=== PATIENT | male | born 1990 | race Caucasian/White ===

== ENCOUNTER 2019-07-10 14:03 | Inpatient (IN) | payer SELFPAY ==
[2019-07-10] MEDS ORDERED: LIDOCAINE 1% MPF 5 ML VIAL ONE (14:12)
[2019-07-10] MEDS ORDERED: BUPIVACAINE 0.5% PF 10 ML VIAL ONE (14:13)
[2019-07-10] MEDS ORDERED: ONDANSETRON 4 MG/2 ML VIAL ONE (14:13)
[2019-07-10] MEDS ORDERED: MORPHINE 4 MG/ML SYR ONE (14:13)
[2019-07-10] MEDS ORDERED: CEFAZOLIN/SWI 1gm 2 GM/20 ML SYR ONE (14:18)
--- NOTE | 2019-07-10 14:49 | RAD REPORT ---
EXAM DESCRIPTION: RAD -Hand Left 3 View - 07/10/2019 2:40 pm CLINICAL HISTORY: Left hand pain status post injury FINDINGS: Soft tissue amputation involves distal third and fourth digit. Comminuted avulsion fractures involve the third and fourth terminal brooke. No dislocation
[2019-07-10 15:13] LABS: Absolute Lymphocytes (CBC) 2.5 K/uL (0.7-4.9); Basophils % 0.6 % (0-1.3); Hematocrit 47.4 % (39.6-49.0); Lymphocytes % 33.2 % (15.3-44.8); MPV 8.2 fL (7.6-11.3); RBC Red Blood Cell Count 5.26 M/uL (4.33-5.43)
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
--- NOTE | 2019-07-10 15:25 | EDPHYS ---
Physician Documentation [facility] Name: Cruz Olivarez Age: 29 yrs Sex: Male : 1990 Arrival Date: 07/10/2019 Time: 14:04 Bed 20 Private MD: ED Physician Gio Ignacio HPI: 07/09 14:49 This 29 yrs old Male presents to ER via EMS with complaints of Finger Injury. [facility] 14:49 Trauma demographics: County: The injury occurred in [place]. Mechanism of injury: terri Crush injury:. Associated injuries: The patient sustained decreased range of motion, painful injury. Onset: The symptoms/episode began/occurred this morning. The patient has not experienced similar symptoms in the past. Historical: - Allergies: 14:07 Amoxicillin; ll1 - PMHx: 14:07 Seizures; ll1 - PSHx: 14:07 None; ll1 - Immunization history:: Last tetanus immunization: < 5 years ago. - Social history:: Smoking status: Patient reports the use of cigarette tobacco products, smokes one pack cigarettes per day. Patient uses alcohol, weekly. Patient/guardian denies using IV drugs. - Family history:: not pertinent. ROS: 14:49 Constitutional: Negative for fever, chills, and weight loss, Eyes: Negative for injury, terri pain, redness, and discharge, ENT: Negative for injury, pain, and discharge, Neck: Negative for injury, pain, and swelling, Cardiovascular: Negative for chest pain, palpitations, and edema, Respiratory: Negative for shortness of breath, cough, wheezing, and pleuritic chest pain, Abdomen/GI: Negative for abdominal pain, nausea, vomiting, diarrhea, and constipation, Back: Negative for injury and pain, : Negative for injury, bleeding, discharge, and swelling, Skin: Negative for injury, rash, and discoloration, Neuro: Negative for headache, weakness, numbness, tingling, and seizure, Psych: Negative for depression, anxiety, suicide ideation, homicidal ideation, and hallucinations, Allergy/Immunology: Negative for hives, rash, and allergies, Endocrine: Negative for neck swelling, polydipsia, polyuria, polyphagia, and marked weight changes. 14:49 MS/extremity: Positive for deformity, pain, swelling, tenderness, of the palmar aspect of distal phalanx of left ring finger, palmar aspect of distal phalanx of left middle finger, left middle fingernail and left ring fingernail. Exam: 14:49 Constitutional: This is a well developed, well nourished patient who is awake, alert, terri and in no acute distress. Head/Face: Normocephalic, atraumatic. Eyes: Pupils equal round and reactive to light, extra-ocular motions intact. Lids and lashes normal. Conjunctiva and sclera are non-icteric and not injected. Cornea within normal limits. Periorbital areas with no swelling, redness, or edema. ENT: Nares patent. No nasal discharge, no septal abnormalities noted. Tympanic membranes are normal and external auditory canals are clear. Oropharynx with no redness, swelling, or masses, exudates, or evidence of obstruction, uvula midline. Mucous membranes moist. Neck: Trachea midline, no thyromegaly or masses palpated, and no cervical lymphadenopathy. Supple, full range of motion without nuchal rigidity, or vertebral point tenderness. No Meningismus. Chest/axilla: Normal chest wall appearance and motion. Nontender with no deformity. No lesions are appreciated. Cardiovascular: Regular rate and rhythm with a normal S1 and S2. No gallops, murmurs, or rubs. Normal PMI, no JVD. No pulse deficits. Respiratory: Lungs have equal breath sounds bilaterally, clear to auscultation and percussion. No rales, rhonchi or wheezes noted. No increased work of breathing, no retractions or nasal flaring. Abdomen/GI: Soft, non-tender, with normal bowel sounds. No distension or tympany. No guarding or rebound. No evidence of tenderness throughout. Back: No spinal tenderness. No costovertebral tenderness. Full range of motion. Male : Normal genitalia with no discharge or lesions. Skin: Warm, dry with normal turgor. Normal color with no rashes, no lesions, and no evidence of cellulitis. Neuro: Awake and alert, GCS 15, oriented to person, place, time, and situation. Cranial nerves II-XII grossly intact. Motor strength 5/5 in all extremities. Sensory grossly intact. Cerebellar exam normal. Normal gait. Psych: Awake, alert, with orientation to person, place and time. Behavior, mood, and affect are within normal limits. 14:49 Musculoskeletal/extremity: Extremities: noted in the palmar aspect of distal phalanx of left ring finger, palmar aspect of distal phalanx of left middle finger, left middle fingernail and left ring fingernail: deformity, pain. Vital Signs: 14:05 BP 138 / 99; Pulse 86; Resp 17; Temp 97.2; Pulse Ox 97% ; Pain 10/10; ll1 16:25 BP 112 / 72; Pulse 82; Resp 17; Pulse Ox 99% ; Pain 7/10; ll1 MDM: 14:20 Patient medically screened. [facility] 15:35 Data reviewed: vital signs, nurses notes, lab test result(s), radiologic studies, plain terri films. 07/09 14:54 Order name: CBC with Diff [facility] 07/09 14:54 Order name: Comprehensive Metabolic Panel [facility] 07/09 14:23 Order name: XRAY Hand LEFT 3 View 07/09 15:18 Order name: Wound dressing; Complete Time: 16:47 [facility] Administered Medications: 14:09 Drug: Zofran (Ondansetron) 4 mg Route: IVP; Site: right antecubital; ll1 14:39 Follow up: Response: No adverse reaction; Pain is decreased; RASS: Alert and Calm (0) ll1 14:10 Drug: morphine 4 mg Route: IVP; Site: right antecubital; ll1 14:38 Follow up: Response: No adverse reaction; Pain is decreased; RASS: Alert and Calm (0) ll1 15:00 Drug: Ancef 2 grams Route: IVPB; Infused Over: 30 mins; Site: right antecubital; ll1 16:23 Follow up: Response: No adverse reaction; IV Status: Completed infusion; IV Intake: [id number] 15:19 Not Given (Up to date 2015): Tetanus-Diphtheria Toxoid Adult 0.5 ml IM once ll1 Disposition: 07/10/19 15:23 Hospitalization ordered by Biju Luciano for Observation. 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 - Bed requested for Telemetry/MedSurg (observation). - Status is Observation. ll1 - Condition is Stable. - Problem is new. - Symptoms have improved. Signatures: Dispatcher [employer] EDMS DirrimDulce Corey, MD MD cha Lewis, Lynsay, RN RN ll1 Corrections: (The following items were deleted from the chart) 15:56 15:23 Hospitalization Ordered by Biju Luciano MD for Observation. 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 Bed requested for Telemetry/MedSurg (observation). Status is Observation. Condition is Stable. Problem is new. Symptoms have improved. [facility] 16:59 15:56 07/10/2019 15:23 Hospitalization Ordered by Biju Luciano MD for Observation. 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 Bed requested for Telemetry/MedSurg (observation). Status is Observation. Condition is Stable. Problem is new. Symptoms have improved. bd
[2019-07-10 15:33] LABS: Albumin 4.6 g/dL (3.4-5.0); Bilirubin Total 0.9 mg/dL (0.2-1.0); Potassium 3.8 mmol/L (3.5-5.1); Protein, Total 7.8 g/dL (6.4-8.2)
[2019-07-10] MEDS ORDERED: ONDANSETRON 4 MG/2 ML VIAL IV PRN (17:17)
[2019-07-10] MEDS ORDERED: ACETAMINOPHEN 325 MG TABLET PO PRN (17:28)
[2019-07-10 17:34] VITALS: BMI 27.1
[2019-07-10] MEDS: NA CHLORIDE 0.9% 1,000 ML IV SCH (18:04)
[2019-07-10] MEDS: MORPHINE 4 MG/ML SYR IV PRN ×2 (18:04→21:42)
[2019-07-10] MEDS: CEFAZOLIN/SWI 1gm 1 GM/10 ML SYR IVP SCH (18:45)
[2019-07-11] MEDS: CEFAZOLIN/SWI 1gm 1 GM/10 ML SYR IVP SCH ×5 (00:33→23:17)
[2019-07-11] MEDS: MORPHINE 4 MG/ML SYR IV PRN ×3 (02:33→19:42)
[2019-07-11] MEDS: NA CHLORIDE 0.9% 1,000 ML IV SCH ×3 (05:48→23:17)
[2019-07-11 06:24] LABS: Absolute Lymphocytes (CBC) 3.6 K/uL (0.7-4.9); Basophils % 0.8 % (0-1.3); Hematocrit 44.7 % (39.6-49.0); Lymphocytes % 47.7 % (15.3-44.8); MPV 8.2 fL (7.6-11.3); RBC Red Blood Cell Count 4.97 M/uL (4.33-5.43)
[2019-07-11 06:26] LABS: BUN Blood Urea Nitrogen 10 mg/dL (7-18); Bicarbonate 25 mmol/L (21-32); Glucose Level 96 mg/dL (74-106); Potassium 3.8 mmol/L (3.5-5.1); Sodium Level 140 mmol/L (136-145)
[2019-07-11 08:16] LABS: Blood Morphology Comment NOT SEEN (NOT SEEN); Platelet Estimate ADEQ
[2019-07-11] MEDS ORDERED: Ringers Lactate 1,000 ML IV ONE (14:31)
[2019-07-11] MEDS: HYDROMORPHONE HCL 1 MG/ML INJ ONE ×2 (14:50→17:15)
[2019-07-11] MEDS ORDERED: MIDAZOLAM HCL 2 MG/2 ML INJ ONE (16:11)
[2019-07-11] MEDS ORDERED: FENTANYL CITR 100 MCG/2 ML ONE (16:11)
[2019-07-11] MEDS ORDERED: LIDOCAINE 1% MPF 5 ML VIAL ONE (16:11)
[2019-07-11] MEDS ORDERED: propofoL 200 MG/20 ML VIAL IV ONE (16:11)
[2019-07-11] MEDS ORDERED: KETOROLAC 30 MG/ML INJ ONE (16:34)
[2019-07-11] MEDS ORDERED: ONDANSETRON 4 MG/2 ML VIAL ONE (16:51)
[2019-07-11] MEDS ORDERED: HYDROMORPHONE HCL 1 MG/ML INJ ONE (17:35)
[2019-07-11] MEDS: CODEINE 30MG/APAP 300MG TAB PO PRN ×2 (18:46→23:15)
[2019-07-12] MEDS: MORPHINE 4 MG/ML SYR IV PRN ×2 (00:26→04:00)
--- NOTE | 2019-07-12 01:59 | OP ---
Surgeon: Biju Luciano MD Preoperative Diagnosis: Tip amputation of the left middle and ring finger. Postoperative Diagnosis: Tip amputation of the left middle and ring finger. Procedure: Debridement of skin and subcutaneous tissue, bone with flap closures of both middle and ring finger. Anesthesia: General. Procedure In Detail: After satisfactory induction of general anesthesia, the hand was prepped with Betadine scrub, Betadine paint, dry sterile drapes applied in the usual manner. The arm was elevated, exsanguinated with an Esmarch. Tourniquet was inflated to 250 mmHg. Hand was placed on [place] table. The nail plate was removed in the middle finger, very small portion. He underwent amputation approximately up to almost to the dermal matrix on the middle finger, more distally on the ring. Skin and subcutaneous tissue were debrided. Bone was cut and filed with a saw, and the wound was jet lavage irrigated with 3 L of dilute Betadine solution. Then the flap was outlined radially and ulnarly, advanced to the midline. Sewn, closed with 4-0 PDS simple sutures. Tourniquet released. Dressed with Xeroform, 2 inch Antonio. The patient tolerated the procedure well and returned to Recovery. LYNDSAY/ROSA MARIA Voice ID: [id number] Report ID: [id number] KIKI
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
--- NOTE | 2019-07-12 03:04 | DS ---
Hospital Course: Patient is 29-year-old white male, right-hand dominant, who cut tips of left middle and ring fingers. HE smokes a pack a day. Drinks daily. He has a tip amputation volar surface on the middle finger was approximately at the germinal matrix and on the ring finger more distally, approximately half of the nail bed has gone. He was taken to Surgery, underwent debridement flap closure. Discharged home on Tylenol #3, 1 tab p.o. q.3 hours p.r.n. pain, Keflex 500 mg p.o. q.6 hours, return to office following Tuesday, 5 days from now, at the [place] office at 9 o'clock in morning. LYNDSAY/ROSA MARIA Voice ID: [id number] Report ID: [id number] MTDD
[2019-07-12] MEDS: CEFAZOLIN/SWI 1gm 1 GM/10 ML SYR IVP SCH (05:32)
[2019-07-12] MEDS: CODEINE 30MG/APAP 300MG TAB PO PRN (07:39)
[2019-07-12 07:43] VITALS: O2SAT 98
[2019-07-12] MEDS: NA CHLORIDE 0.9% 1,000 ML IV SCH (09:17)
[2019-07-12 10:07] VITALS: BP 132/87; TEMP 97.9
== END 2019-07-12 10:15 | disposition home or self-care (01) | DRG 906 ==
LOC: ER 14:03 → ERHOLD 15:29 → 2ND 16:46 → OBSVTOIN 07-11 15:28
PROVIDERS: ADMIT Specialist; ATTEND Specialist
PROC: 0X6T0Z3 Detachment at Left Ring Finger, Low, Open Approach (ICD-10-PCS; 2019-07-11)
PROC: 0JDK0ZZ Extraction of Left Hand Subcutaneous Tissue and Fascia, Open Approach (ICD-10-PCS; 2019-07-11)
PROC: 0JR Subcutaneous Tissue and Fascia, Replacement (ICD-10-PCS; 2019-07-11)
PROC: 0X6R0Z2 Detachment at Left Middle Finger, Mid, Open Approach (ICD-10-PCS; principal; 2019-07-11 13:00)
DX: S68.623A Partial traumatic transphalangeal amputation of left middle finger, initial encounter (principal); S68.625A Partial traumatic transphalangeal amputation of left ring finger, initial encounter; Z88.1 Allergy status to other antibiotic agents; F17.210 Nicotine dependence, cigarettes, uncomplicated
CPT/HCPCS: 36415; 80048; 80053; 85025; 88304; 88305; 88311; 96365; 96375; 99285; G0378; J0690; J1170; J2250; J2405; J2704; J3010; J7030; J7120

== ENCOUNTER 2020-03-30 13:47 | Emergency (ER) | payer OTHER, SELFPAY ==
--- OUTSIDE RECORDS SUMMARY | 2020-03-30 13:49 | XMS REPORT | Continuity of Care Document ---
:1990 Author Organization [facility] t Address [address] [place] [address] Care Team Providers Name Role Phone Asked, Pcp Primary Care Physician Unavailable Art Alcantara MD Attending Clinician Problems This patient has no known problems. Allergies, Adverse Reactions, Alerts Allergy Allergy Status Severity Reaction(s) Onset Inactive Treating Comm ents Source Name Type Date Date Clinician Amoxicil Propensi Active Unknown 2019-04 Daphnet on teto ty to Reaction 05-29 Methodi adverse 00:00: st reaction 00 s to drug Social History Social Habit Start Date Stop Date Quantity Comments Source Sex Assigned At [place] M ethodist Tobacco use and 2020-03-29 2020-03-29 Former user [facility] exposure 00:00:00 00:00:00 Alcohol intake 2020-03-29 2020-03-29 Current drinker [facility]ie on [facility] 00:00:00 00:00:00 of alcohol (finding) Smoking Status Start Date Stop Date Source Current every day smoker 2020-03-29 00:00:00 I[facility] Medications Ordered Filled Start Stop Current Ordering Indication Dosage Frequency Signature Comments Components Source Medication Medication Date Date Medication? Clinician (SIG) Name Name methocarbam 2019-04- Yes 500mg [id number] Take 1 [place] oL 05-30 [id number] tablet Method i (ROBAXIN) 00:00: 23:59 3D ([address] 500 MG 00 :00 total) by tablet mouth 3 (three) times a day as needed for muscle spasms (do not drive) for up to 10 days. diclofenac 2019-04- Yes 50mg Q.5D Take 1 [place] (VOLTAREN) 05-30 tablet (50 Me thodi 50 MG EC 00:00: 23:59 mg total) st tablet 00 :00 by mouth 2 (two) times a day as needed (for pain and swelling. take w/ food) for up to 7 days. Vital Signs Vital Name Observation Time Observation Value Comments Source Systolic blood 2020-03-29 07:03:00 120 mm[Hg] [facility] pressure Diastolic blood 2020-03-29 07:03:00 75 mm[Hg] Allie bhardwaj [facility] pressure Heart rate 2020-03-29 07:03:00 65 /min Edgar Carter Body temperature 2020-03-29 07:03:00 36.56 Myriam [facility] Respiratory rate 2020-03-29 07:03:00 18 /min [facility] Oxygen saturation in 2020-03-29 07:03:00 99 /min Edgar Carter Arterial blood by Pulse oximetry Body height 2020-03-28 22:55:00 182.9 cm Edgar Carter Body weight 2020-03-28 22:55:00 86.183 kg Edgar Carter BMI 2020-03-28 22:55:00 25.77 kg/m2 Edgar Carter Procedures Procedure Date / Time Performed Performing Clinician Sourc e XR LUMBAR SPINE 2 OR 3 2020-03-29 00:37:48 Ebenezer Pope on [facility] VW XR TIBIA FIBULA 2 VW 2020-03-28 22:59:32 Ebenezer Pope LEFT XR FOOT 3+ VW LEFT 2020-03-28 22:59:14 Ebenezer Pope M ethodist XR ANKLE 3+ VW LEFT 2020-03-28 22:58:54 Ebenezer Pope Plan of Care Planned Activity Planned Date Details Comments Source Future Scheduled 2019-11-03 INFLUENZA VACCINE Daphneto n [facility] Test 00:00:00 [code = INFLUENZA VACCINE] Future Scheduled 2008 COVID-19 VACCINE Hernández [facility] Test 00:00:00 (#1) [code = COVID-19 VACCINE (#1)] Encounters Start End Encounter Admission Attending Care Care Encounter Source Date/Time Date/Time Type Type Clinicians Facility Department ID 2020-03-28 2020-03-29 Emergency TIA, [facility] [id number] 07 [place] 00:00:00 00:00:00 MEG Davis Method i st Results Test Description Test Time Test Results Result Source Comments Comments XR Lumbar Spine 2020-03-05 Interface, Radiology [place] 2 Or 3 Vw 6 Results Incoming - Method ist 01:10:18 03/29/2020 1:13 AM 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 For the purposes of this dictation the last well defined interspaces called L5-S1. Lumbar spine alignment is normal. Extensive postsurgical changes multiple screws through the pelvis, right hip and right sacroiliac joint. No hardware loosening or fracture. No acute fracture identified. Overlying soft tissue is unremarkable. [id number] XR Foot 3+ Vw 2020-03-05 Interface, Radiology [place] Left 5 Results Incoming - Method ist 23:50:46 03/28/2020 11:53 PM CSTEXAMINATION: XR FOOT 3 VW LEFTCLINICAL HISTORY: 29 years Male fall recent sxCOMPARISON: None available at this time.IMPRESSION:There is extensive postoperative change throughout the foot. Intramedullary wires traversing the second, third, fourth, and fifth metatarsophalangeal joint extending through the metatarsals into the midfoot. The second, third and fourth wires extend through the tarsometatarsal joints. The fifth wire terminates in the fifth metatarsal Hardware is present overlying the first tarsal metatarsal jointThere is a fracture of the proximal second metatarsal, the fixation beulah traverses a fracture.Extensive osteopenic changes are present. The bones are demineralized XR Tibia Fibula 2020-03-05 Interface, Radiology [place] 2 Left 5 Results Incoming - Method ist 23:41:03 03/28/2020 11:44 PM CSTEXAMINATION: XR TIBIA FIBULA 2 LEFTCLINICAL HISTORY: fallCOMPARISON: NoneIMPRESSION:Acute nondisplaced fracture of the mid pole of the patella.Acute intra-articular fracture of the lateral tibial plateau.Irregularity of the proximal fibular head is concerning for additional acute fracture site.Small suprapatellar effusion.Hardware is seen of the midfoot.[id number] XR Ankle 3+ Vw 2020-03-05 Interface, Radiology [place] Left 5 Results Incoming - Method ist 23:00:24 03/28/2020 11:03 PM CSTEXAMINATION: XR ANKLE 3 LEFTCLINICAL HISTORY: fallCOMPARISON: Same day left foot radiographsIMPRESSION:N o acute fracture. Ankle mortise is intact. Attempted arthrodesis of the first tarsometatarsal joint with 2 dorsal metallic brackets and percutaneous pinning of the remaining tarsometatarsal joints is better seen on same-day foot radiographs. Normal osseous mineralization. Soft tissue swelling throughout the forefoot.[id number]
--- OUTSIDE RECORDS SUMMARY | 2020-03-30 13:49 | XMS REPORT | Clinical Summary ---
:1990 Author Organization [facility] Address [address] [place] [address] Care Team Providers Name Role Phone Asked, Pcp Primary Care Provider Unavailable Allergies Active Allergy Reactions Severity Noted Date Comments Amoxicillin Unknown Reaction 03/28/2020 Medications Medication Sig Dispensed Refills Start Date End Date Status diclofenac (VOLTAREN) Take 1 tablet 14 tablet 0 03/29/202005/2020 Active 50 MG EC tablet (50 mg total) by mouth 2 (two) times a day as needed (for pain and swelling. take w/ food) for up to 7 days. methocarbamoL (ROBAXIN) Take 1 tablet 20 tablet 0 03/29/2020 0 04/08/2020 Active 500 MG tablet (500 mg total) by mouth 3 (three) times a day as needed for muscle spasms (do not drive) for up to 10 days. Active Problems Not on file Encounters Date Type Specialty Care Team Description 03/28/2020 - Emergency Emergency Medicine Geo Alcantara f racture of second metatarsal bone of left foot, physeal involvement unspecified, initial encounter (Primary Dx); 03/29/2020 MD Art Closed nondispl aced fracture of patella, unspecified fracture morphology, unspecified laterality, initial encounter; Closed fracture of left tibial plateau, initial encounter; Fall, initial e ncounter after 03/30/2019 Surgical History Surgery Date Site/Laterality Comments LEG SURGERY Bilateral FINGER SURGERY Left middle and ring FOOT SURGERY Left KNEE SURGERY Right PELVIC FRACTURE SURGERY SHOULDER SURGERY Left Medical History Medical History Date Comments No known health problems Social History Tobacco Use Types Packs/Day Years Used Date Current Every Day Smoker Smokeless Tobacco: Former User Alcohol Use Drinks/Week oz/Week Comments Yes Sex Assigned at Date Recorded Not on file Job Start Date Occupation Industry Not on file Not on file Not on file Last Filed Vital Signs Vital Sign Reading Time Taken Comments Blood Pressure 120/75 03/29/2020 7:03 AM PT [facility] Pulse 65 03/29/2020 7:03 AM [facility] Temperature 36.6 C (97.8 F) 03/29/2020 7:03 AM PT [facility] Respiratory Rate 18 03/29/2020 7:03 AM PT [facility] Oxygen Saturation 99% 03/29/2020 7:03 AM PT [facility] Inhaled Oxygen Concentration - - Weight 86.2 kg (190 lb) 03/28/2020 10:55 PM PT [facility] Height 182.9 cm (6') 03/28/2020 10:55 PM PT [facility] Body Mass Index 25.77 03/28/2020 10:55 PM PT [facility] Plan of Treatment Health Maintenance Due Date Last Done Comments COVID-19 VACCINE (#1) 2008 INFLUENZA VACCINE 11/03/2019 Procedures Procedure Name Priority Date/Time Associated Diagnosis Comme nts XR LUMBAR SPINE 2 STAT 03/29/2020 12:37 AM Res ults for this OR 3 VW PT [facility] procedure are i n the results section. XR TIBIA FIBULA 2 STAT 03/28/2020 10:59 PM Res ults for this VW LEFT PT [facility] procedure are i n the results section. XR FOOT 3+ VW LEFT STAT 03/28/2020 10:59 PM Re sults for this PT [facility] procedure are i n the results section. XR ANKLE 3+ VW LEFT STAT 03/28/2020 10:58 PM R esults for this PT [facility] procedure are i n the results section. after 03/30/2019 Results XR Lumbar Spine 2 Or 3 Vw (03/29/2020 12:37 AM PT ESCORT) Specimen Narrative Performed At EXAMINATION: XR LUMBAR SPINE 2 OR 3 V W [facility] CLINICAL HISTORY: back pain COMPARISON: None. IMPRESSION: 3 views of the lumbar spine were obtaine d. For the purposes of this dictation the last well defin ed interspaces called L5-S1. Lumbar spine alignment is normal. Extensive postsurgical changes multiple screws through the pelvis, right hip and right sacroiliac joint. No hardware loosening or fracture. No acute fracture identified. Overlying s oft tissue is unremarkable. [id number] Procedure Note Hm Interface, Radiology Results Incoming - 03/29/2020 1:13 AM PT [facility] EXAMINATION: XR LUMBAR SPINE 2 OR 3 VW CLINICAL HISTORY: back pain COMPARISON: None. IMPRESSION: 3 views of the lumbar spine were obtaine d. For the purposes of this dictation the l ast well defined interspaces called L5-S1. Lumbar spine alignment is normal. Extensive postsurgical changes multiple screws through the pelvis, right hip and right sacroiliac joint. No hardware loosening or fracture. No acute fracture identified. Overlying soft tissue is unremarkable. [id number] Performing Organization Address [facility] e Number [facility] [address] [place] [address] XR Tibia Fibula 2 Vw Left (03/28/2020 10:59 PM PT [facility]) Specimen Narrative Performed At EXAMINATION: XR TIBIA FIBULA 2 VW LEFT [facility] CLINICAL HISTORY: fall COMPARISON: None IMPRESSION: Acute nondisplaced fracture of the mid p ole of the patella. Acute intra-articular fracture of the la teral tibial plateau. Irregularity of the proximal fibular head is concernin g for additional acute fracture site. Small suprapatellar effusion. Hardware is seen of the midfoot. [id number] Procedure Note Interface, Radiology Results Incoming - 03/28/2020 11:44 PM PT [facility] EXAMINATION: XR TIBIA FIBULA 2 VW LEFT CLINICAL HISTORY: fall COMPARISON: None IMPRESSION: Acute nondisplaced fracture of the mid p ole of the patella. Acute intra-articular fracture of the la teral tibial plateau. Irregularity of the proximal fibular hea d is concerning for additional acute fracture site. Small suprapatellar effusion. Hardware is seen of the midfoot. [id number] Performing Organization Address [facility] e Number [facility] [address] [place] [address] XR Foot 3+ Vw Left (03/28/2020 10:59 PM PT [facility]) Specimen Narrative Performed At EXAMINATION: XR FOOT 3 VW LEFT [facility] CLINICAL HISTORY: 29 years Male fal l recent sx COMPARISON: None available at this eamon e. IMPRESSION: There is extensive postoperative change throughout the foot. Intramedullary wires traversing the second, third, fou rth, and fifth metatarsophalangeal joint extending through the metata rsals into the midfoot. The second, third and fourth wi res extend through the tarsometatarsal joints. The fifth wire ter minates in the fifth metatarsal Hardware is present overlying the fir st tarsal metatarsal joint There is a fracture of the proximal second metatarsal, the fixation beulah traverses a fracture. Extensive osteopenic changes are present . The bones are demineralized Procedure Note Interface, Radiology Results Incoming - 03/28/2020 11:53 PM PT [facility] EXAMINATION: XR FOOT 3 VW LEFT CLINICAL HISTORY: 29 years Male fall recent sx COMPARISON: None available at this time . IMPRESSION: There is extensive postoperative change throughout the foot. Intramedullary wires traversing the second, third, fourth, and fifth metatarsophalangeal joint extending through the metatarsals into the midfoot. The second, third and fourth wires extend through the tarsometatarsal joints. The fifth wire terminates in the fifth metatarsal Hardware is present overlying the first tarsal metatarsal joint There is a fracture of the proximal seco nd metatarsal, the fixation beulah traverses a fracture. Extensive osteopenic changes are present . The bones are demineralized Performing Organization Address [facility] Phon e Number [facility] [address] [place] [address] XR Ankle 3+ Vw Left (03/28/2020 10:58 PM PT [facility]) Specimen Narrative Performed At EXAMINATION: XR ANKLE 3 VW LEFT [facility] CLINICAL HISTORY: fall COMPARISON: Same day left foot radiogr aphs IMPRESSION: No acute fracture. Ankle mortise is intact. Attempted arthrodesis of the first tarsometatarsal joint with 2 dorsal metallic bra ckets and percutaneous pinning of the remaining tarsometatarsal joints is better seen on same-day foot radiographs. Deepali l osseous mineralization. Soft tissue swel ling throughout the forefoot. [id number] Procedure Note Hm Interface, Radiology Results Incoming - 03/28/2020 11:03 PM PT [facility] EXAMINATION: XR ANKLE 3 VW LEFT CLINICAL HISTORY: fall COMPARISON: Same day left foot radiogra phs IMPRESSION: No acute fracture. Ankle mortise is inta ct. Attempted arthrodesis of the first tarsometatarsal joint with 2 dorsal metallic brackets and percutaneous pinning of the remaining tarsometatarsal joints is better seen on same-day foot radiographs. Normal osseous mineralization. Soft tissue swel ling throughout the forefoot. 

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
[2020-03-30] MEDS ORDERED: HYDROCODONE/APAP 10/325 TAB ONE (15:21)
[2020-03-30 17:53] VITALS: BP 110/66; TEMP 98; O2SAT 99
== END 2020-03-30 17:48 | disposition home or self-care (01) ==
LOC: ER 13:47
DX: M79.672 Pain in left foot (principal); Z88.1 Allergy status to other antibiotic agents
CPT/HCPCS: 99283

== ENCOUNTER 2020-04-28 10:41 | Emergency (ER) | payer OTHER, SELFPAY ==
[2020-04-28] MEDS ORDERED: MORPHINE 4 MG/ML SYR ONE (11:15)
[2020-04-28] MEDS ORDERED: ONDANSETRON 4 MG/2 ML VIAL ONE (11:15)
[2020-04-28 11:23] LABS: Absolute Lymphocytes (CBC) 1.1 K/uL (0.7-4.9); Basophils % 0.3 % (0-1.3); Hematocrit 31.3 % (39.6-49.0); MPV 7.3 fL (7.6-11.3); RBC Red Blood Cell Count 4.04 M/uL (4.33-5.43)
--- OUTSIDE RECORDS SUMMARY | 2020-04-28 11:24 | XMS REPORT | Clinical Summary ---
:1990 Author Organization [facility] Address [address] [place] [address] Care Team Providers Name Role Phone Asked, Pcp Primary Care Provider Unavailable Allergies Active Allergy Reactions Severity Noted Date Comments Amoxicillin Unknown Reaction 03/28/2020 Medications Medication Sig Dispensed Refills Start Date End Date Status diclofenac (VOLTAREN) Take 1 tablet 14 tablet 0 03/29/202005/2020 50 MG EC tablet (50 mg total) by mouth 2 (two) times a day as needed (for pain and swelling. take w/ food) for up to 7 days. methocarbamoL Take 1 tablet 20 tablet 0 03/29/2020 04/08/2020 (ROBAXIN) 500 MG (500 mg total) tablet by mouth 3 (three) times a day as needed for muscle spasms (do not drive) for up to 10 days. Active Problems Not on file Encounters Date Type Specialty Care Team Description 03/28/2020 - Emergency Emergency Medicine Geo Alcantara Closed f racture of second metatarsal bone of left foot, physeal involvement unspecified, initial encounter (Primary Dx); 03/29/2020 MD Art Closed nondispl aced fracture of patella, unspecified fracture morphology, unspecified laterality, initial encounter; Closed fracture of left tibial plateau, initial encounter; Fall, initial e ncounter after 04/28/2019 Surgical History Surgery Date Site/Laterality Comments LEG [...] Comments Blood Pressure 120/75 03/29/2020 7:03 AM [facility] Pulse 65 03/29/2020 7:03 AM BUS [facility] Temperature 36.6 C (97.8 F) 03/29/2020 7:03 AM [facility] Respiratory Rate 18 03/29/2020 7:03 AM [facility] Oxygen Saturation 99% 03/29/2020 7:03 AM [facility] Inhaled Oxygen Concentration - - Weight 86.2 kg (190 lb) 03/28/2020 10:55 PM BUS [facility]ER Height 182.9 cm (6') 03/28/2020 10:55 PM [facility] Body Mass Index 25.77 03/28/2020 10:55 PM [facility]ER Plan of Treatment Health Maintenance Due Date Last Done Comments COVID-19 VACCINE (1 of 2) 2008 INFLUENZA VACCINE 11/03/2019 Procedures Procedure Name Priority Date/Time Associated Diagnosis Comme nts XR LUMBAR SPINE 2 STAT 03/29/2020 12:37 AM Res ults for this OR 3 VW [facility] procedure are i n the results section. XR TIBIA FIBULA 2 STAT 03/28/2020 10:59 PM Res ults for this VW LEFT [facility] procedure are i n the results section. XR FOOT 3+ VW LEFT STAT 03/28/2020 10:59 PM Re sults for this [facility] procedure are i n the results section. XR ANKLE 3+ VW LEFT STAT 03/28/2020 10:58 PM R esults for this [facility] procedure are i n the results section. after 04/28/2019 Results XR Lumbar Spine 2 Or 3 Vw (03/29/2020 12:37 AM BUS [facility]ER) Specimen Narrative Performed At EXAMINATION: XR LUMBAR [...] Radiology Results Incoming - 03/29/2020 1:13 AM [facility] EXAMINATION: XR LUMBAR SPINE 2 OR 3 [...] tissue is unremarkable. [id number] Performing Organization Address [facility] e Number [facility] [address] [place] [address] XR Tibia Fibula 2 Vw Left (03/28/2020 10:59 PM BUS WASHER) Specimen Narrative Performed At EXAMINATION: XR TIBIA FIBULA 2 [facility]: fall COMPARISON: None IMPRESSION: Acute nondisplaced fracture of the mid p ole of the patella. Acute intra-articular fracture of the la teral tibial plateau. Irregularity of the proximal fibular head is concernin g for additional acute fracture site. Small suprapatellar effusion. Hardware is seen of the midfoot. [id number] Procedure Note Interface, Radiology Results Incoming - 03/28/2020 11:44 PM BUS W[facility]ER EXAMINATION: XR TIBIA FIBULA 2 VW LEFT CLINICAL HISTORY: fall COMPARISON: None IMPRESSION: Acute nondisplaced fracture of the mid p ole of the patella. Acute intra-articular fracture of the la teral tibial plateau. Irregularity of the proximal fibular hea d is concerning for additional acute fracture site. Small suprapatellar effusion. Hardware is seen of the midfoot. [id number] Performing Organization Address [facility] e Number [facility] [address] [place] [address] XR Foot 3+ Vw Left (03/28/2020 10:59 PM BUS WASHER) Specimen Narrative Performed At EXAMINATION: [facility] FOOT 3 [facility]W [facility] CLINICAL H[facility]ORY: 29 years Male fal l [...] Radiology Results Incoming - 03/28/2020 11:53 PM BUS W[facility]ER EXAMINATION: XR FOOT 3 VW LEFT CLINICAL [...] The bones are demineralized Performing Organization Address [facility] Phon e Number [facility] [address] [place] [address] XR Ankle 3+ Vw Left (03/28/2020 10:58 PM BUS WASHER) Specimen Narrative Performed At EXAMINATION: XR ANKLE [...] Radiology Results Incoming - 03/28/2020 11:03 PM BUS W[facility]ER EXAMINATION: XR ANKLE 3 VW LEFT CLINICAL [...] throughout the forefoot. 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
--- OUTSIDE RECORDS SUMMARY | 2020-04-28 11:24 | XMS REPORT | Continuity of Care Document ---
:1990 Author Organization [facility] t Address [facility] [place] [address] Care Team Providers Name Role Phone Asked, Pcp Primary Care Physician Unavailable Quinton BOLDEN, Art Attending Clinician Problems This patient has no [...] Date Quantity Comments Source Sex Assigned At [place] [facility] Tobacco use and 2020-03-29 2020-03-29 Former user [facility] exposure 00:00:00 00:00:00 Alcohol intake 2020-03-29 2020-03-29 Current drinker [place] [facility] 00:00:00 00:00:00 of alcohol (finding) Smoking Status Start Date Stop Date Source Current every day smoker 2020-03-29 00:00:00 [facility] Medications Ordered Filled Start Stop Current Ordering Indication Dosage Frequency Signature Comments Components Source Medication Medication Date Date Medication? Clinician (SIG) Name Name methocarbam 2019-04- No 500mg [id number] Take 1 [place] oL 05-30 [id number] tablet Method i (ROBAXIN) 00:00: 23:59 3D ([address] 500 MG 00 :00 total) by tablet mouth 3 (three) times a day as needed for muscle spasms (do not drive) for up to 10 days. diclofenac 2019-04- No 50mg Q.5D Take 1 [place] (VOLTAREN) 05-30 tablet (50 Me thodi 50 MG EC 00:00: 23:59 mg total) st tablet 00 :00 by mouth 2 (two) times a day as needed (for pain and swelling. take w/ food) for up to 7 days. Vital Signs Vital Name Observation Time Observation Value Comments Source Systolic blood 2020-03-29 07:03:00 120 mm[Hg] [place] [facility] pressure Diastolic blood 2020-03-29 07:03:00 75 mm[Hg] [place] [facility] pressure Heart rate 2020-03-29 07:03:00 65 /min Edgar Carter Body temperature 2020-03-29 07:03:00 36.56 Myriam [place] [facility] Respiratory rate 2020-03-29 07:03:00 18 /min [place] [facility] Oxygen saturation in 2020-03-29 07:03:00 99 /min Edgar Carter Arterial blood by Pulse oximetry Body height 2020-03-28 22:55:00 182.9 cm Edgar Carter Body weight 2020-03-28 22:55:00 86.183 kg Edgar Carter BMI 2020-03-28 22:55:00 25.77 kg/m2 Edgar Carter Procedures Procedure Date / Time Performed Performing Clinician Sourc e XR LUMBAR SPINE 2 OR 3 2020-03-29 00:37:48 Ebenezer Pope on [facility] VW XR TIBIA FIBULA 2 VW 2020-03-28 22:59:32 Ebenezer Pope LEFT XR FOOT 3+ VW LEFT 2020-03-28 22:59:14 Ebenezer Pope M ethodist XR ANKLE 3+ VW LEFT 2020-03-28 22:58:54 Ebenezer Pope Plan of Care Planned Activity Planned Date Details Comments Source Future Scheduled 2019-11-03 INFLUENZA VACCINE [place] [facility] 00:00:00 [code = INFLUENZA VACCINE] Future Scheduled 2008 COVID-19 VACCINE (1 [place] [facility] Test 00:00:00 of 2) [code = COVID-19 VACCINE (1 of 2)] Encounters Start End Encounter Admission Attending Care Care Encounter Source Date/Time Date/Time Type Type Clinicians Facility Department ID 2020-03-28 2020-03-29 Emergency [facility] [id number] [place] 00:00:00 00:00:00 MEG [facility] Method i st Results Test Description Test Time Test Results Result Source Comments Comments XR Lumbar Spine 2020-03-05 Interface, Radiology [place] 2 Or 3 Vw 6 Results Incoming - Method ist 01:10:18 03/29/2020 1:13 AM SOA INTEGRATION ARCHITECT EXAMINATION: XR LUMBAR SPINE 2 OR 3 [...] XR Foot 3+ Vw 2020-03-05 Interface, Radiology [facility] 5 Results Incoming - Method ist 23:50:46 03/28/2020 11:53 PM CSTEXAMINATION: XR FOOT 3 LEFTCLINICAL HISTORY: 29 years Male fall recent [...] demineralized XR Tibia Fibula 2020-03-05 Interface, Radiology [place] 2 Left 5 Results Incoming - Method ist 23:41:03 03/28/2020 11:44 PM CSTEXAMINATION: XR TIBIA FIBULA 2 LEFTCLINICAL HISTORY: fallCOMPARISON: NoneIMPRESSION:Acute nondisplaced fracture of the mid pole of the patella.Acute intra-articular fracture of the lateral tibial plateau.Irregularity of the proximal fibular head is concerning for additional acute fracture site.Small suprapatellar effusion.Hardware is seen of the midfoot.[id number] XR Ankle 3+ Vw 2020-03-05 Interface, Radiology [place] Left 5 Results Incoming - Method ist [...]
[2020-04-28 11:35] LABS: BUN Blood Urea Nitrogen 8 mg/dL (7-18); Bicarbonate 31 mmol/L (21-32); Glucose Level 96 mg/dL (74-106); Sodium Level 131 mmol/L (136-145)
[2020-04-28] MEDS ORDERED: NA CHLORIDE 0.9% 1,000 ML ONE (12:04)
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
[2020-04-28] MEDS ORDERED: HYDROCODONE/APAP 10/325 TAB ONE (13:17)
--- NOTE | 2020-04-28 13:28 | RAD REPORT ---
EXAM DESCRIPTION: US - Scrotum Testicles - 04/28/2020 12:47 pm CLINICAL HISTORY: abd pain, pelvic pain, left-sided testicular pain and swelling COMPARISON: No comparisons FINDINGS: No focal mass within either testicle. Doppler evaluation shows blood flow within the bilat eral testicular tissue. Left epididymis is enlarged relative to the right and hyperemic. Left-sided h ydrocele is present. No extratesticular mass. IMPRESSION: Left-sided epididymitis pattern with mild to moderate left hydrocele.
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
[2020-04-28] MEDS ORDERED: DOXYCYCLINE 100 MG CAP PO ONE (14:02)
[2020-04-28] MEDS ORDERED: CEFTRIAXONE 500 MG/VIAL ONE (14:02)
[2020-04-28] MEDS ORDERED: WATER FOR INJ,STERILE 10 ML ONE (14:03)
[2020-04-28 15:38] VITALS: BP 123/69; O2SAT 97
== END 2020-04-28 15:26 | disposition home or self-care (01) ==
LOC: ER 10:41
DX: N45.1 Epididymitis (principal); M54.5 Low back pain; N43.3 Hydrocele, unspecified
CPT/HCPCS: 36415; 74176; 76870; 80048; 85025; 96361; 96372; 96374; 96375; 99284; J0696; J2405; J7030

== ENCOUNTER 2020-06-13 15:25 | Emergency (ER) | payer OTHER, SELFPAY ==
--- OUTSIDE RECORDS SUMMARY | 2020-06-13 15:29 | XMS REPORT | Continuity of Care Document ---
:[address] [facility] [place] t Address [address] [place] [id number] Care Team Providers Name Role Phone TIA Attending Clinician Unavailable Problems This patient has no known problems. Allergies, Adverse Reactions, Alerts This patient has no known allergies or adverse reactions. Medications This patient has no known medications. Procedures This patient has no known procedures. Encounters Start End Encounter Admission Attending Care Care Encounter Source Date/Time Date/Time Type Type Clinicians Facility Department ID 2020-03-28 2020-03-29 Emergency TIA [facility] [id number] 07 [place] 00:00:00 00:00:00 MEG [facility] Method i st Results This patient has no known results.
--- NOTE | 2020-06-13 17:10 | RAD REPORT ---
EXAM DESCRIPTION: US - Scrotum Testicles - 06/13/2020 4:52 pm CLINICAL HISTORY: Testicular pain COMPARISON: April 2020 FINDINGS: The right epididymis and right testicle unremarkable The left epididymis is enlarged with increased blood flow. The left testicle is heterogeneous containing increased blood flow. Additionally there is a 4 hypoech oic mass within the testicle which extends into the adjacent tissue. This is compatible with with abs cess IMPRESSION: Left epididymitis/orchitis with 4 centimeter abscess
[2020-06-13 17:53] LABS: Absolute Lymphocytes (CBC) 1.6 K/uL (0.7-4.9); Basophils % 0.7 % (0-1.3); Hematocrit 35.8 % (39.6-49.0); Lymphocytes % 22.1 % (15.3-44.8); MPV 6.8 fL (7.6-11.3); RBC Red Blood Cell Count 4.48 M/uL (4.33-5.43)
[2020-06-13] MEDS ORDERED: Levofloxacin500mg IV 500 MG/100 ML BAG IV ONE (18:11)
[2020-06-13 18:32] LABS: ALT/SGPT 41 U/L (12-78); AST/SGOT 11 U/L (15-37); Albumin 3.4 g/dL (3.4-5.0); Alkaline Phosphatase 139 U/L (45-117); BUN Blood Urea Nitrogen 11 mg/dL (7-18); Bicarbonate 30 mmol/L (21-32); Bilirubin Direct 0.1 mg/dL (0-0.2); Bilirubin Total 0.2 mg/dL (0.2-1.0); Glucose Level 69 mg/dL (74-106); Potassium 4.1 mmol/L (3.5-5.1); Protein, Total 8.3 g/dL (6.4-8.2); Sodium Level 141 mmol/L (136-145)
[2020-06-13] MEDS ORDERED: NA CHLORIDE 0.9% 250 ML ONE (18:52)
[2020-06-13] MEDS ORDERED: VANCOMYCIN 1 GM/VIAL ONE (18:52)
[2020-06-13] MEDS ORDERED: MORPHINE 4 MG/ML SYR ONE ×2 (19:34→22:16)
[2020-06-13] MEDS ORDERED: ONDANSETRON 4 MG/2 ML VIAL ONE (19:34)
--- NOTE | 2020-06-13 19:39 | P.CNS ---
Date of Consult: 06/13/20 (electronic/phone consultation only) Received a call from HERMELINDO Gunter, in the ED at [facility] regarding this 30yo male patient with left testicular swelling and pain. I provided a courtesy virtual consultation as follows: The patient has no elevated WBC, though he does have a monocytosis, and he was reportedly afebrile with stable vital signs. The U/S was read as epididymoorchitis with testicular abscess essentially extending outside the testicular parenchyma. If an abscess were severe enough to rupture through the tunica albuginea, he would certainly have more of a systemic reaction to the infection. I reviewed the imaging myself, and while there certainly may be an inflammatory reaction, there were hypoechoic regions, one of which extended extratesticularly, which in my estimation were unlike any testicular abscess I had seen. And in concert with his normal WBC, my concern was for malignancy instead. I reviewed imaging from a prior visit in April, where he was complaining of similar left scrotal pain along with other back and associated pains. The testicles were imaged at that time, and the left testis was markedly enlarged and with heterogeneous regions within, even evident on the CT. As a result, I contacted HERMELINDO Owens back to inform him that I was concerned this patient had a malignancy and not simply an abscess. As such, because I am not available to provide physical surgical consultation tonight, as I am not animation camera operator, I recommended the following: AFP, bHCG, LDH blood work, and Transfer for inperson urologic surgical consultation and management as opposed to admission for further IV antimicrobial therapy.
[2020-06-13 19:45] LABS: Urine Blood NEGATIVE (NEG); Urine Glucose NEGATIVE (NEG); Urine Protein NEGATIVE (NEG); Urine Specific Gravity 1.025 (1.005-1.030)
[2020-06-13 20:31] LABS: HCG, Quantitative < 1 mIU/mL (<1)
[2020-06-13 20:54] LABS: Urine Amorphous Sediment 2+ /HPF (NONE SEEN); Urine Bacteria LOADED /HPF (NONE SEEN); Urine Mucus 1+ /HPF (NONE SEEN); Urine RBC <5 /HPF (NONE SEEN)
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
[2020-06-14 00:22] VITALS: TEMP 98.6
[2020-06-14 00:32] VITALS: BP 92/41; O2SAT 98
== END 2020-06-14 00:14 | disposition short-term general hospital (02) ==
LOC: ER 15:25
DX: N45.4 Abscess of epididymis or testis (principal); N45.3 Epididymo-orchitis; F17.210 Nicotine dependence, cigarettes, uncomplicated; Z88.1 Allergy status to other antibiotic agents
CPT/HCPCS: 36415; 76870; 80048; 80076; 81003; 81015; 81025; 83615; 84702; 85025; 85652; 86140; 87040; 87077; 87086; 87088; 87186; 96365; 96366; 96367; 96375; 99285; J2405; J3370; J7050; U0003

== ENCOUNTER 2020-09-16 21:24 | Emergency (ER) | payer OTHER ==
--- OUTSIDE RECORDS SUMMARY | 2020-09-16 21:28 | XMS REPORT | Continuity of Care Document ---
:1990 Author Organization [facility] t Address [address] [place] [address] Care Team Providers Name Role Phone Asked, Pcp Primary Care Physician Unavailable AYO Attending Clinician Unavailable YUE Attending Clinician Unavailable Jw BOLDEN Attending Clinician Morris BOLDEN Attending Clinician Debi Saleh MD Attending Clinician Akshat Santiago MD Attending Clinician [phone] Sendy Mobley MD Attending Clinician Huma Rey DO Attending Clinician Fauzia BOLDEN Attending Clinician Saadia Kincaid MD Attending Clinician MD [place] Attending Clinician Unavailable Art Alcantara MD Attending Clinician SARAH Admitting Clinician Unavailable MORRIS Admitting Clinician Unavailable MD [place] Admitting Clinician Unavailable Payers Payer Name Policy Type Policy Number Effective Date Expiration Date Iván cheng [place] MEDICA[place] [id number] 2020 2024 00:00:00 00:00:00 MEDICAIDMEDICA [id number] 2020 [place] [id number] 00:00:00 [facility] 04/2019-Present Medicaid Problems Condition Condition Condition Status Onset Resolution Last Treating Co mments Source Name Details Category Date Date Treatment Clinician Date UTI UTI Disease Active [place] (urinary (urinary 07-08 Method i tract tract 00:00: st infection) infection) 00 with with pyuria pyuria Testicular Testicular Disease Active [place] abscess abscess 3-18 Methodi 00:00: st 00 Intractabl Intractabl Disease Resolve 2020-07-10 2020-07-10 Edgar roberson nausea e nausea d 07-08 00:00:00 03:59:48 Me thodi and and 00:00: st vomiting vomiting 00 Allergies, Adverse Reactions, Alerts Allergy Allergy Status Severity Reaction(s) Onset Inactive Treating Comm ents Source Name Type Date Date Clinician Amoxicil Propensi Active Hives 2019-04 [place] teto ty to 05-29 Methodi adverse 00:00: st reaction 00 s to drug Social History Social Habit Start Date Stop Date Quantity Comments Source Cigarettes smoked 2020-07-07 2020-07-07 Edgar Carter current (pack per 00:00:00 00:00:00 day) - Reported Tobacco use and 2020-07-07 2020-07-07 Former user Edgar Carter exposure 00:00:00 00:00:00 Alcohol intake 2020-07-07 2020-07-07 Current drinker Daph[place] on [facility] 00:00:00 00:00:00 of alcohol (finding) Sex [birth year] At [birth year] Edgar Vega ethodist 00:00:00 00:00:00 Smoking Status Start Date Stop Date Source Current every day smoker 2020-07-07 00:00:00 Ivet Carter Medications Ordered Filled Start Stop Current Ordering Indication Dosage Frequency Signature Comments Components Source Medication Medication Date Date Medication? Clinician (SIG) Name Name pantoprazol No 40mg QD Take 1 Ivet roberson 07-10 tablet (40 Methodi (Protonix) 00:00: 23:59 mg total) s t 40 MG EC 00 :00 by mouth tablet daily for 30 days. ciprofloxac No 500mg Q.5D Take 1 Ho roslyn in (Cipro) 07-10 tablet Method i 500 MG 00:00: 23:59 ([address] tablet 00 :00 total) by mouth 2 (two) times a day for 10 days. polyethylen No 17g QD Take 17 g Edgar e glycol 07-05 by mouth Method i (MIRALAX) 00:00: 23:[address] 17 gram 00 :00 30 days. packet diclofenac 2020- No 50mg Q.5D Take 1 [place] (VOLTAREN) 07-05 tablet (50 Me thodi 50 MG EC 00:00: 23:59 mg total) st tablet 00 :00 by mouth 2 (two) times a day as needed (for pain and swelling. take w/ food) for up to 7 days. metoclopram 2020- No 10mg Q.5D Take 1 Ivet ston nelson 07-05 tablet (10 Methodi (Reglan) 10 00:00: 23:59 mg total) st MG tablet 00 :00 by mouth 2 (two) times a day as needed (hiccups, nausea or vomiting) for up to 5 days. levoFLOXaci 2020- No 500mg QD Take 1 Ho yelena n 07-05 tablet Methodi (LEVAQUIN) 00:00: 00:00 ([address] 500 MG 00 :00 total) by tablet mouth daily for 7 days. sulfamethox 2020- No 1{tbl} Q.5D Take 1 [place] azole-trime 06-23 tablet by Sd thodi thoprim 09:32: 00:[address] (BACTRIM 47 :00 (two) DS) 800-160 times a mg per day. tablet clindamycin 2020- No 300mg Q.[id number] Take 300 Hernández (CLEOCIN) 06-23 [id number] mg by Me thodi 300 MG 09:32: 00:[address] capsule 47 :00 (three) times a day. ciprofloxac 2020- No 500mg Q.5D Take 1 Raulito mcgowan in (Cipro) 06-22 tablet Method i 500 MG 00:00: 23:59 ([address] tablet 00 :00 total) by mouth 2 (two) times a day for 5 days. keTOROlac 2020- No 10mg Q6H Take 1 [place] (TORadol) 06-22 tablet (10 Met hodi 10 mg 00:00: 23:59 mg total) st tablet 00 :00 by mouth every 6 (six) hours as needed for moderate pain for up to 5 days. methocarbam 2019-04 No 500mg Q.[id number] Take 1 Hernández oL 05-30 [id number] tablet Method i (ROBAXIN) 00:00: 23:59 3D ([address] 500 MG 00 :00 total) by tablet mouth 3 (three) times a day as needed for muscle spasms (do not drive) for up to 10 days. diclofenac 2019-04 No 50mg Q.5D Take 1 Daphne ton (VOLTAREN) 05-30 tablet (50 Me thodi 50 MG EC 00:00: 23:59 mg total) st tablet 00 :00 by mouth 2 (two) times a day as needed (for pain and swelling. take w/ food) for up to 7 days. Vital Signs Vital Name Observation Time Observation Value Comments Source Systolic blood 2020-07-10 11:27:39 125 mm[Hg] Daphneto n [facility] pressure Diastolic blood 2020-07-10 11:27:39 68 mm[Hg] Allie on [facility] pressure Heart rate 2020-07-10 11:27:39 73 /min Edgar Carter Body temperature 2020-07-10 11:27:39 36 Myriam Daphne Carter Respiratory rate 2020-07-10 11:27:39 18 /min Daphne Carter Oxygen saturation in 2020-07-10 11:27:39 98 /min Edgar Carter Arterial blood by Pulse oximetry Body height 2020-07-08 03:46:00 182.9 cm Edgar Carter Body weight 2020-07-07 21:26:00 86.183 kg Edgar Carter BMI 2020-07-07 21:26:00 25.77 kg/m2 Edgar Carter Procedures Procedure Date / Time Performing Clinician Source Performed CBC WITH PLATELET AND 2020-07-10 05:13:00 Laila Santiago DIFFERENTIAL Akshat Lovett COMPREHENSIVE METABOLIC 2020-07-10 05:13:00 Laila Santiago PANEL Akshat Lovett ESTIMATED GFR 2020-07-10 05:13:00 Laila Santiagoamed A MANUAL DIFFERENTIAL 2020-07-10 05:13:[address] RENAL STONE PROTOCOL 2020-07-09 11:09:16 Laila Santiago A URINE DRUGS OF ABUSE 2020-07-08 04:20:00 Ebenezer Pope SCREEN RESPIRATORY PATHOGEN 2020-07-08 01:26:00 Ebenezer Pope PANEL WITH COVID-19 LACTIC ACID LEVEL, SEPSIS 2020-07-08 00:58:00 Neha Escalera - NOW AND REPEAT 2X EVERY 3 HOURS BLOOD CULTURE, AEROBIC & 2020-07-08 00:58:00 Neha Escalera ANAEROBIC BLOOD CULTURE, AEROBIC & 2020-07-08 00:48:00 Neha Escalera ANAEROBIC URINALYSIS SCREEN AND 2020-07-07 22:16:00 Ebenezer Pope MICROSCOPY, WITH REFLEX TO CULTURE URINE CULTURE 2020-07-07 22:16:00 Ebenezer Pope COMPREHENSIVE METABOLIC 2020-07-07 21:34:00 Ebenezer Pope PANEL LIPASE LEVEL 2020-07-07 21:34:00 Ebenezer Pope HC COMPLETE BLD COUNT 2020-07-07 21:34:00 Ebenezer Pope W/AUTO DIFF ESTIMATED GFR 2020-07-07 21:34:00 Ebenezer Pope oddov URINE CULTURE 2020-07-05 19:14:00 Ebenezer Pope URINALYSIS SCREEN AND 2020-07-05 18:32:00 Ebenezer Pope MICROSCOPY, WITH REFLEX TO CULTURE CT ABDOMEN PELVIS W 2020-07-05 16:22:58 Ebenezer Pope CONTRAST HC COMPLETE BLD COUNT 2020-07-05 15:00:00 Ebenezer Pope W/AUTO DIFF PROTHROMBIN TIME WITH INR 2020-07-05 15:00:00 Ebenezer Pope [facility] PARTIAL THROMBOPLASTIN 2020-07-05 15:00:00 Ebenezer Pope on Lutheran TIME (PTT) COMPREHENSIVE METABOLIC 2020-07-05 15:00:00 Ebenezer Pope [facility] PANEL LIPASE LEVEL 2020-07-05 15:00:00 Ebenezer Pope Meth odist LACTIC ACID LEVEL, SEPSIS 2020-07-05 15:00:00 Ebenezer Pope Lutheran - NOW AND REPEAT 2X EVERY 3 HOURS ESTIMATED GFR 2020-07-05 15:00:00 Ebenezer Pope Meth oddov CBC WITH PLATELET AND 2020-06-23 05:13:00 OgDiana morrison [facility] DIFFERENTIAL Emilie COMPREHENSIVE METABOLIC 2020-06-23 05:13:00 Diana Schroeder [facility] PANEL Emilie ESTIMATED GFR 2020-06-23 05:13:00 Diana cShroeder Lutheran Emilie MANUAL DIFFERENTIAL 2020-06-23 05:13:00 OgbonhaydenaDiana Lutheran Emilie VANCOMYCIN LEVEL, TROUGH 2020-06-22 11:08:00 Shmuel Cageist CBC WITH PLATELET AND 2020-06-22 06:08:00 OgbonDiana lopez [facility] DIFFERENTIAL Emilie COMPREHENSIVE METABOLIC 2020-06-22 06:08:00 Diana Schroeder [facility] PANEL Emilie ESTIMATED GFR 2020-06-22 06:08:00 OgbongbemalyseaDiana Lutheran Emilie MANUAL DIFFERENTIAL 2020-06-22 06:08:00 OgbongblatanyaaDiana Lutheran Emilie VANCOMYCIN LEVEL, TROUGH 2020-06-21 10:00:00 Shmuel Cage [facility] CBC WITH PLATELET AND 2020-06-21 05:10:00 OgbongbemalyseaDiana Lutheran DIFFERENTIAL Emilie COMPREHENSIVE METABOLIC 2020-06-21 05:10:00 OgbongbDiana barragan [facility] PANEL Emilie ESTIMATED GFR 2020-06-21 05:10:00 Diana Schroeder [facility] Emilie MANUAL DIFFERENTIAL 2020-06-21 05:10:00 Diana Schroeder Emilie TISSUE CULTURE 2020-06-20 12:41:00 Manohar Cage [employer] CULTURE 2020-06-20 12:41:00 Manohar Cage GRAM STAIN 2020-06-20 12:41:00 Manohar Cage AFB STAIN 2020-06-20 12:41:00 Manohar Cage ANAEROBIC CULTURE 2020-06-20 12:41:00 Manohar Cage on [facility] FUNGUS CULTURE 2020-06-20 12:41:00 Manohar Cage OR AN ELECTIVE 2020-06-20 12:08:00 Ab[address] Sd thodist SUPRAGLOTTIC AIRWAY [place] EXPLORATION, SCROTUM 2020-06-20 11:45:00 Manohar Cage LACTIC ACID LEVEL, SEPSIS 2020-06-20 06:28:00 Francesca Rey - NOW AND REPEAT 2X EVERY 3 HOURS CBC WITH PLATELET AND 2020-06-20 06:28:00 Diana Izquierdo [facility] DIFFERENTIAL BASIC METABOLIC PANEL 2020-06-20 06:28:00 Diana Izquierdo [facility] ESTIMATED GFR 2020-06-20 06:28:00 Diana Izquierdo Meth odist MANUAL DIFFERENTIAL 2020-06-20 06:28:[address] ABDOMEN PELVIS W 2020-06-20 01:00:51 Francesca Rey CONTRAST LACTIC ACID LEVEL, SEPSIS 2020-06-20 00:48:00 Francesca Rey - NOW AND REPEAT 2X EVERY 3 HOURS COVID-19 QUALITATIVE PCR 2020-06-20 00:44:00 Francesca Rey URINE CULTURE 2020-06-19 23:00:00 Francesac Rey URINALYSIS SCREEN AND 2020-06-19 22:57:00 Francesca Rey MICROSCOPY, WITH REFLEX TO CULTURE US SCROTAL 2020-06-19 22:08:45 Francesca Rey COMPREHENSIVE METABOLIC 2020-06-19 21:54:00 Francesca Rey PANEL HC COMPLETE BLD COUNT 2020-06-19 21:54:00 Francesca Rey W/AUTO DIFF LACTIC ACID LEVEL, SEPSIS 2020-06-19 21:54:00 Francesca Rey - NOW AND REPEAT 2X EVERY 3 HOURS ESTIMATED GFR 2020-06-19 21:54:00 Francesca Rey BLOOD CULTURE, AEROBIC & 2020-06-19 21:54:00 Francesca Rey ANAEROBIC BLOOD CULTURE, AEROBIC & 2020-06-19 21:48:00 Francesca Rey ANAEROBIC XR LUMBAR SPINE 2 OR 3 VW 2020-03-29 00:37:48 Ebenezer Pope XR TIBIA FIBULA 2 VW LEFT 2020-03-28 22:59:32 Ebenezer Pope XR FOOT 3+ VW LEFT 2020-03-28 22:59:14 Ebenezer Pope M ethodist XR ANKLE 3+ VW LEFT 2020-03-28 22:58:54 Ebenezer Pope Plan of Care Planned Activity Planned Date Details Comments Source Future Scheduled 2020-11-02 INFLUENZA VACCINE Chase Carter Test 00:00:00 [code = INFLUENZA VACCINE] Future Scheduled 2010 Hepatitis C Edgar jhaveri Test 00:00:00 screening (procedure) [code = 486686811] Future Scheduled 2004 COVID-19 VACCINE (1) Ivet Carter Test 00:00:00 [code = COVID-19 VACCINE (1)] Encounters Start End Encounter Admission Attending Care Care Encounter Source Date/Time Date/Time Type Type Clinicians Facility Department ID 2020-08-21 Outpatient [facility] [id number] [place] 14:14:02 Health 2020-08-09 Outpatient CASEY ROLLINS [facility] [id number] [place] 02:53:22 [facility] 2020-08-09 Outpatient YUE [facility] [id number] [place] 02:53:22 YONNY [facility] 2020-07-07 2020-07-10 Inpatient SARAH [place] [address] [id number] [place] 00:00:00 00:00:00 , TANSEEM 173 Meth earnest 2020-07-05 2020-07-05 Emergency JUDD, [place] [address] [id number] [place] 00:00:00 00:00:00 JOSE DANIEL 314 Method i 2020-06-19 2020-06-23 Inpatient BAVARE, [place] [address] [id number] [place] 00:00:00 00:00:00 ARUSHA [address] 2020-03-28 2020-03-29 Emergency TIA, [place] [address] [id number] [place] 00:00:00 00:00:00 MEG [address] Results Test Description Test Time Test Comments Results Result Comments Source AFB culture 2020-08-02 00:13:38 Test Item Value Reference Range Interpretation Comme nts AFB culture isolate No growth after 6 weeks of Specimen InformationSpecimen (test code = 543-9) incubation. Source: TissueSpecimen Site: Scrotum: scrota l abscess swab tissue for cult ure Hernández MethodistFungus [id number] 00:15:26 Test Item Value Reference Range Interpretation Comments Fungus culture No growth Specimen isolate (test after 4 weeks InformationSp ecimen code = 1441) of Source: TissueS pecimen incubation. Site: Scrotum: scrotal abscess swab ti ssue for culture Hernández MethodistCT Renal Stone [id number] 11:29:21Hm Interface, Radiology Results 07/09/2020 11:32 AM CDT EXAMINATION: CT RENAL STONE PROTOCOLCLINICAL HISTORY: 30 years Male hematuria hx of scrotal abscessTECHNIQUE: Multiple axial images of the abdomen and pelvis were obtained without intravenous administration of iodinated contrast. Sagittal and coronal computerized reformatted images were also obtained. The lack of intravenous contrast reduces the sensitivity of detecting solid organ disease. CT imaging was performed with iterative reconstruction techniques and/or automated exposure control to reduce radiation dose. COMPARISON: 07/05/2020IMPRESSION:LUNG BASES:Visualized lung bases are clear.ABDOMEN:Liver: The liver is normal. No focal mass.Gallbladder/Biliary: The gallbladder is normal. There is no evidence of intra or extrahepatic biliary ductal dilatation.Spleen: The spleen is not enlarged. No focal mass.Pancreas: The pancreas is unremarkable.Adrenal Glands: The adrenal glands are unremarkable.Kidneys: There is a large, 1.1 cm, nonobstructing stone in the mid right renal pelvis, and there is evidence of mild right renal pelvis and proximal right ureteral inflammation. These findings are unchanged. No obstruction or dilation is seen. There is an adjacent benign renal parenchymal calcification, unchanged. There is no other renal finding. No stone is seen on the left.Vascular: The abdominal aorta is nonaneurysmal.Nodes: No enlarged retroperitoneal or mesenteric lymphadenopathy.Bowel: The bowel is normal caliber and overall unremarkable.Ascites/fluid collections: Noascites or fluid collections.PELVIS:The bladder is not well evaluated but is grossly unremarkable. No pelvic lesion is seen. MUSCULOSKELETAL: Extensive pelvic hardware as described previously SUMMARY:1.The right renal pelvis stone is unchanged from the prior scan. There is no evidence of active urinary obstruction.2.No new [id number] MethodistUrine culture 2020-07-09 08:27:37 Test Item Value Reference Range Interpretation Comments Urine culture No growth Specimen isolate (test after 24 InformationSpe [facility]en code = 97752-4) hours Source: Urin eSpecimen Site: [facility] MethodistWA Abdomen Pelvis W [id number] 17:02:37 Interface, Radiology Results 07/05/2020 5:05 PM CDT EXAMINATION: CT ABDOMEN PELVIS W CONTRASTCLINICAL HISTORY: 30 yearsMale abd pain vomiting hypoactive bowel soundTECHNIQUE: Multiple axial images of the abdomen and pelvis were obtained following intravenous administration of iodinated contrast. Sagittal and coronal computerized reformatted images were also obtained. CT imaging was performed with iterative reconstruction techniques and/or automated exposure control to reduce radiation dose. COMPARISON: None.IMPRESSION:LUNG BASES:The lung bases are free of acute disease.ABDOMEN:Liver: The liver is normal. No focal mass.Ga llbladder/Biliary: The gallbladder is normal. There is no evidence of intra or extrahepatic biliary ductal dilatation.Spleen: The spleen is not enlarged.Pancreas: The pancreas is unremarkable.Adrenal Glands: The adrenal glands are unremarkable.Kidneys: A 10 mm calculus is present in the right renal pelvis. A significant hydronephrosis is not appreciated.Vascular: The abdominal aorta is nonaneurysmal.Nodes: No enlarged retroperitoneal or mesenteric lymphadenopathy.Bowel: No bowel obstruction or inflammatory changes.Ascites/fluid collections: No ascites or fluid collections.PELVIS:No mass, fluid collection or significant adenopathy. MUSCULOSKELETAL: Fixation hardware about the pelvis is present. 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 The the left acetabulum demonstrates fibrous or partial union. Enthesopathic changes about the iliac crests are present.SUMMARY:1.No bowel distention. [facility]-[id number] [facility]an Nocardia [id number] 11:21:29 Test Item Value Reference Range Interpretation Comments Nocardia No Nocardia Specimen culture isolate isolated after Informatio nSpecimen (test code = 7 days. Source: TissueS pecimen 1808) Site: Scrotum: scrotal abscess swab ti ssue for culture [place] MethodistAnaerobic [id number] 08:02:47 Test Item Value Reference Range Interpretation Comments Anaerobic No anaerobic Specimen culture isolate organisms InformationS pecimen (test code = isolated. Source: TissueS pecimen 552) Site: Scrotum: scrotal abscess swab ti ssue for culture Hernández MethodistAFB [id number] 13:44:45 Test Item Value Reference Range Interpretation Comments AFB stain No acid fast Specimen (test code = bacilli (AFB) InformationSpe [facility] 676-7) seen. Source: TissueS pecimen Site: Scrotum: scrotal abscess swab ti ssue for culture Hernández MethodistGram [id number] 13:44:45 Test Item Value Reference Range Interpretation Comments Gram stain No WBC's or Specimen isolate (test organisms seen. Information Specimen code = 1469) Source: TissueS pecimen Site: Scrotum: scrotal abscess swab ti ssue for culture Hernández MethodistFungus [id number] 13:44:45 Test Item Value Reference Range Interpretation Comments Fungus smear No fungi Specimen (test code = observed. InformationSpec imen Source: 1443) TissueSpecimen Site: Scrotum: scrota l abscess swab tissue for culture [place] [id number] 12:08:00CoAbdirizak hill CRNA 06/20/2020 12:21 PMAirway Date/Time: 06/20/2020 12:08 PM Location: OR Performed by: MARKETING SERVICES SPECIALIST/Ledyt/MARKETING SERVICES SPECIALIST/AA: Abdirizak Cantu CRNAAuthorized by: Jerald Kincaid MD Urgency: ElectiveDifficult Airway: No Preoxygenated with 100% O2: Yes Mask Ventilation: Not attemptedFinal Airway Type: Supraglottic airwayFinal LMA: ClassicLMA Size: 5Numberof Attempts at Approach: 1[place] PhlvkbpjcZLNA-AsV-0 (COVID-19) RNA [Presence] in Respiratory specimen by LINDSAY with probe [id number] 05:11:20 Test Item Value Reference Range Interpretation Comments SARS-CoV-2 (COVID-19) RNA Not detected Not-Detected [Presence] in Respiratory specimen by LINDSAY with probe detection (test code = 09084-5) [place] [id number] 22:39:30Hm Interface, Radiology Results 06/19/2020 10:42 PM CDT EXAMINATION: US SCROTALCLINICAL HISTORY: eval for scrotal abscessCOMPARISON: None.TECHNIQUE: Sonographic evaluation of the scrotum. Real-time B mode grayscale, Doppler spectral analysis and Doppler color flow imaging was used to assess testicular vasculature.FINDINGS:RIGHT HEMISCROTUM: The right testicle measures 4.7 x 2.3 x 2.5 cm..Testicular echogenicity is normal. No intratesticular masses are identified. There is normal color and duplex Doppler flow.The right epididymis is unremarkable. There is increased flow seen in the soft tissues anterior to the testicle.LEFT HEMISCROTUM: The left testicle measures 3.5 x 2.4 x 3.1 cm..The left testicle demonstrates markedly increased flow and has a heterogeneous appearance. There is a small area of decreased fluid seen within the left testicle. A left testicular abscess cannot be excluded.The left epididymis is heterogeneous and has increased flow.The soft tissues anterior to the testicle demonstrate edema and increased flow. There is a hyperemic density which measures 2.7 cm.IMPRESSION:1. The left testicle is enlarged and has a heterogeneous appearance with markedly increased flow. These findings are suggestive of possible left testicular abscess.2. The left testicle has increased flow with increased flow seen within the left epididymis. These findings are consistent with left epididymal orchitis.3. There is increase soft tissue swelling with increased flow seen within the soft tissues anterior to the left and right testicles. Is greatest overlying the left testicle. These findings are suggestive of soft tissue cellulitis. No clearly defined fluid collection is present.4. Blood flow is present to both testicles.5. The right testicle is unremarkable.[id number] Lutheran XR Lumbar Spine 2 Or 3 [id number] 01:10:18Hm Interface, Radiology Results 03/29/2020 1:13 AM CST EXAMINATION: XR LUMBAR SPINE 2 OR 3 VWCLINICAL HISTORY: back painCOMPARISON: None.IMPRESSION:3 views of the lumbar spine were obtained. For the purposes of this dictation the last well defined interspaces called L5- S1. Lumbar spine alignment is normal. Extensive postsurgical changes multiple screws through the pelvis, right hip and right sacroiliac joint. No hardware loosening or fracture. No acute fracture identified. Overlying soft tissue is unremarkable. [id number] MethodistXR Foot 3+ Vw [id number] 23:50:46 Hm Interface, Radiology Results 03/28/2020 11:53 PM CST EXAMINATION: XR FOOT 3 VW LEFTCLINICAL HISTORY: 29 years Male fall recent sxCOMPARISON: None available at this time.IMPRESSION:There is extensive postoperative change th roughout the foot. Intramedullary wires traversing the second, third, fourth, and fifth metatarsophalangeal joint extending through the metatarsals into the midfoot. The second, third and fourth wires extend through the tarsometatarsal joints. The fifth wire terminates in the fifth metatarsal Hardwareis present overlying the first tarsal metatarsal jointThere is a fracture of the proximal second metatarsal, the fixation beulah traverses a fracture.Extensive osteopenic changes are present. The bones are demineralizedEdgar MethodistXR Tibia Fibula 2 [id number] 23:41:03Hm Interface, Radiology Results Incoming 03/28/2020 11:44 PM CST EXAMINATION: XR TIBIA FIBULA 2 VW LEFTCLINICAL HISTORY: fallCOMPARISON:NoneIMPRESSION:Acute nondisplaced fracture of the mid pole of the patella.Acute intra-articular fracture of the lateral tibial plateau.Irregularity of the proximal fibular head is concerning for additional acute fracture site.Small suprapatellar effusion.Hardware is seen of the midfoot.[id number] TanistXR Ankle 3+ [facility] [id number] 23:00:24Hm Interface, Radiology Results 03/28/2020 11:03 PM CST EXAMINATION: XR ANKLE 3 VW LEFTCLINICAL HISTORY: fallCOMPARISON: Same day left foot radiographsIMPRESSION:No acute fracture. Ankle mortise is intact. Attempted arthrodesisof the first tarsometatarsal joint with 2 dorsal metallic brackets and percutaneous pinning of the remaining tarsometatarsal joints is better seen on same-day foot radiographs. Normal osseous mineralization. Soft tissue swelling throughout the forefoot.[id number] Carter
[2020-09-16 23:07] LABS: Urine Blood Trace-intact (Negative); Urine Glucose Negative (Negative); Urine Protein Trace (Negative); Urine Specific Gravity >=1.030 (1.005-1.030); Urine pH 6.5 (5.0-7.0)
[2020-09-16] MEDS ORDERED: IBUPROFEN 400 MG TAB ONE (23:07)
[2020-09-16] MEDS ORDERED: HYDROCODONE/APAP 7.5/325 MG TAB ONE (23:07)
[2020-09-16 23:34] LABS: Urine Bacteria <20 /HPF (NONE SEEN); Urine RBC <5 /HPF (NONE SEEN)
[2020-09-16 23:35] LABS: Urine Urothelial Cells <5 /HPF (NONE SEEN)
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
[2020-09-17] MEDS ORDERED: levoFLOXacin 500 MG TAB ONE (00:25)
[2020-09-17] MEDS ORDERED: LIDOCAINE 4% PATCH ONE (00:34)
[2020-09-17 00:39] VITALS: TEMP 98.3; O2SAT 100
[2020-09-17 00:41] VITALS: BP 134/87
--- NOTE | 2020-09-17 14:38 | RAD REPORT ---
EXAM DESCRIPTION: CTSpine Lumbar Wo Con09/17/2020 1:04 am CLINICAL HISTORY: PAIN. COMPARISON: None. TECHNIQUE: CT of the lumbar spine was performed without IV contrast. Axial, coronal, and sagittal re constructions were created and sent to PACS. This exam was performed according to our departmental dose-optimization program, which includes autom ated exposure control, adjustment of the mA and/or kV according to patient size and/or use of iterati ve reconstruction technique. FINDINGS: Bones: No acute osseous abnormality identified. Large lucent lesion along the posterior kelley perior endplate of L3 measuring 1.3 cm. Postsurgical and remote posttraumatic changes in the right sa angela and bilateral pelvis, partially imaged. Vertebral body height and alignment is maintained. T12-L1: No significant central canal or neuroforaminal stenosis identified. L1-L2: Mild circumferential disc bulge. No significant central canal or neuroforaminal stenosis ident ified. L2-L3: Mild circumferential disc bulge. Mild neuroforaminal narrowing on the left due to disc materia l. No significant central canal or right neuroforaminal stenosis identified. L3-L4: Moderate circumferential disc bulge results in borderline narrowing of the central canal to 0. 8 cm AP. Mild bilateral neuroforaminal narrowing due to disc material. L4-L5: Moderate circumferential disc bulge results in borderline narrowing of the central canal to 0. 8 to 0.9 cm AP. Mild bilateral neuroforaminal narrowing due to disc material. L5-S1: No significant central canal or neuroforaminal stenosis identified. Paraspinal soft tissues: Unremarkable. IMPRESSION: 1. Lucent lesion along the superior endplate of L3, favored a chronic Schmorl's node. The appearance is not typical for infection. Recommend comparison with the most recent outside prior CT lumbar spine. Otherwise, recommend comparison with MRI. 2. Mild disc degenerative changes in the lumbar spine with borderline narrowing of the central jaqui l, and mild multilevel neuroforaminal narrowing. 3. Postsurgical and remote posttraumatic changes in the right sacrum and bilateral pelvis, partiall y imaged. Electronically signed by: Terri Smith MD 09/16/2020 10:54 PM CDT Due to temporary technical issues with the PACS/Fluency reporting system, reports are being signed by the in house radiologists without review as a courtesy to insure prompt reporting. The interpreting radiologist is fully responsible for the content of the report.
== END 2020-09-17 00:24 | disposition home or self-care (01) ==
LOC: ER 21:24
DX: M54.17 Radiculopathy, lumbosacral region (principal); N39.0 Urinary tract infection, site not specified; G40.909 Epilepsy, unspecified, not intractable, without status epilepticus; Z88.1 Allergy status to other antibiotic agents
CPT/HCPCS: 51700; 72131; 81003; 81015; 87086; 87088; 99284